=== PATIENT | female | born 1940 | race Caucasian/White ===

== ENCOUNTER → 2016-05-20 | Outpatient (CLI) | payer MEDICARE, OTHER ==
[~2016-05-20] MED LIST: ASPI81TA2 PO; CHOL100013 PO; DENO60DI SQ; FLUT1DIS3 IH; GABA-586 PO; MELO-156 PO; OLME20TA PO; SIMV40TA3 PO; TIOT18CA IH; TIZA4CAP PO
--- NOTE | 2016-05-21 13:02 | SLEEP ---
DATE OF STUDY: 05/20/2016 OBJECTIVE: The patient is a 75-year-old female who had an abnormal home study on 03/28/2016. The present study is for the purposes of CPAP titration. INTERPRETATION: Sleep architecture is characterized by a sleep efficiency of 89% across the 7.7 hours of recording time. Stage volumes are appropriate for age. Sleep onset latency is 1 minute. A total of 27 events are recorded for an apnea-hypopnea index of 3.9 events per hour of sleep. On the prior study, the apnea/hypopnea index was 10 per hour, 13 per hour, supine. The minimum oxygen saturation on this study is 83%. The patient is started on treatment and at a setting of 14 cm, has excellent control of her respiratory events. Periodic limb movements of sleep occur at a rate of 3 per hour, zero per hour associated with arousal. No cardiac arrhythmias were observed. IMPRESSION: Abnormal polysomnogram showing obstructive sleep apnea, successfully treatable on CPAP at 14 cm using a small ResMed full facemask. RECOMMENDATIONS: 1. The patient should be started on this setting of CPAP. 2. She should pursue weight loss and avoid sedatives and alcohol. Thank you for letting us help with the patient's care. RUFINA RICHEY MD DR: KARMA/dixon JOB#: [id number] / [id number] LEAH Bryant MD
== END | disposition home or self-care (01) ==
LOC: SLPLAB 18:45
PROVIDERS: ATTEND Psychiatry & Neurology Neurology with Special Qualifications in Child Neurology
DX: G47.33 Obstructive sleep apnea (adult) (pediatric) (principal)
CPT/HCPCS: 95810

== ENCOUNTER 2017-02-14 12:47 | Inpatient (IN) | payer MEDICARE, OTHER ==
[~2017-02-14] VITALS: Ht 160 cm; Wt 69.0 kg
[~2017-02-14 12:47] MED LIST changes: +ASPI-630 PO; -ASPI81TA2 PO; -MELO-156 PO; +MELO7.5T29 PO; -OLME20TA PO; +OLME20TA19 PO
--- NOTE | 2017-02-14 13:14 | EKG ---
[facility] [address] [place] [address] Test Date: 2017-02-14 Test Time: 13:09:35 Pat Name: HARMAN PATTON Department: Room: Gender: F Senior Accounting Clerk: : 1940 Requested By: ALICIA OREILLY Order Number: [id number] Reading MD: Jovan Gray Measurements Intervals [place] Rate: 130 P: VA: QRS: -31 QRSD: 78 T: 56 QT: 320 QTc: 478 Interpretive Statements SINUS TACHYCARDIA ABNORMAL LEFT AXIS DEVIATION LOW LIMB LEAD VOLTAGE QRS(T) CONTOUR ABNORMALITY CONSISTENT WITH INFERIOR INFARCT Electronically Signed On 03-06-2017 16:57:40 CDT by oJvan Gray
[2017-02-14 13:30] LABS: BASO # 0.1 x10^3/uL (0.0-0.2); BASO % 1 % (0-3); EOS % 1 % (0-3); HEMATOCRIT 34.5 % (36.0-47.0); HEMOGLOBIN 11.7 g/dL (12.0-15.5); LYMPH # 1.4 x10^3/uL (1.0-4.8); LYMPH % 15 % (24-48); MEAN CORPUSCULAR HEMOGLOBIN 30 pg (25-35); MEAN CORPUSCULAR HGB CONC 34 g/dL (31-37); MEAN CORPUSCULAR VOLUME 89 fL (79-100); MONO % 10 % (0-9); NEUT % 73 % (31-73); PLATELET COUNT 183 x10^3/uL (140-400); RED BLOOD COUNT 3.89 x10^6/uL (3.50-5.40); RED CELL DISTRIBUTION WIDTH 12.9 % (11.5-14.5); WHITE BLOOD COUNT 8.9 x10^3/uL (4.0-11.0)
--- NOTE | 2017-02-14 13:43 | PHYS DOC ---
Past Medical History Past Medical History: COPD, Dementia, Hypertension Past Surgical History: Appendectomy, Hysterectomy Alcohol Use: None Drug Use: None Adult General Chief Complaint Chief Complaint: CHEST PAIN and abdominal pain HPI HPI Patient is a 76 year old female who presents with abdominal pain and chest pain. Patient had symptoms for 3 days, it is difficult to understand but she reportedly has upper abdominal pain that is diffuse in her upper quadrants and radiates into her chest but then also has chest tightness and pressure at different times. Both cause diaphoresis, shortness of breath with the chest pain. She's also had nausea without vomiting. She reports a fever up to 100.7 at home. She seen by her primary who thought maybe she had the flu. She denies any dysuria, no loose bowels. She's taken nothing for her symptoms. Dr Moreland is her primary care physician. Review of Systems Review of Systems Constitutional: Denies fever or chills [] Eyes: Denies change in visual acuity, redness, or eye pain [] HENT: Denies nasal congestion or sore throat [] Respiratory: Denies cough or shortness of breath [] Cardiovascular: per history of present illness GI: Per history of present illness : Denies dysuria or hematuria [] Musculoskeletal: Denies back pain or joint pain [] Integument: Denies rash or skin lesions [] Neurologic: Denies headache, focal weakness or sensory changes [] Current Medications Current Medications Current Medications Medications (Trade) Dose Ordered Sig/Jose Start Time Stop Time Status Last Admin Dose Admin Acetaminophen (Tylenol) 1,000 mg 1X ONCE 02/14/17 13:45 02/14/17 13:46 DC 02/14/17 13:53 1,000 MG Aspirin (Aurelio Aspirin) 325 mg 1X ONCE 02/14/17 13:45 02/14/17 13:46 DC 02/14/17 13:54 325 MG Sodium Chloride 1,000 ml @ 1,000 mls/hr 1X ONCE 02/14/17 13:45 02/14/17 14:44 DC 02/14/17 13:54 1,000 MLS/HR Allergies Allergies Allergies Coded Allergies Type Severity Reaction Last Updated Verified No Known Drug Allergies 01/03/16 No Physical Exam Physical Exam Constitutional: Well developed, well nourished, no acute distress, non-toxic appearance. [] HENT: Normocephalic, atraumatic, MM dry Eyes: PERRLA, EOMI, conjunctiva normal, no discharge. [] Neck: Normal range of motion, no tenderness, supple, no stridor. [] Cardiovascular:Heart rate regular rhythm, no murmur [] Lungs & Thorax: Bilateral breath sounds clear to auscultation, no wheeze, faint RLL crackle, good air movement Abdomen: Bowel sounds normal, soft, TTP in RUQ with- murphys, ttp epigastric region and LUQ Skin: Warm, dry, no erythema, no rash. [] Back: No tenderness, no CVA tenderness. [] Extremities: No tenderness, no cyanosis, no clubbing, ROM intact, no edema. [] Neurologic: Alert and oriented X 3, normal motor function, normal sensory function, no focal deficits noted. [] Current Patient Data Vital Signs Vital Signs Date Time Temp Pulse Resp B/P (MAP) Pulse Ox O2 Delivery O2 Flow Rate FiO2 02/14/17 14:30 86 101/59 (73) 94 02/14/17 13:57 18 Room Air 02/14/17 13:00 99.5 99.5 Lab Values Laboratory Tests Test 02/14/17 13:15 02/14/17 13:50 White Blood Count 8.9 x10^3/uL (4.0-11.0) Red Blood Count 3.89 x10^6/uL (3.50-5.40) Hemoglobin 11.7 g/dL (12.0-15.5) L Hematocrit 34.5 % (36.0-47.0) L Mean Corpuscular Volume 89 fL (79-100) Mean Corpuscular Hemoglobin 30 pg (25-35) Mean Corpuscular Hemoglobin Concent 34 g/dL (31-37) Red Cell Distribution Width 12.9 % (11.5-14.5) Platelet Count 183 x10^3/uL (140-400) Neutrophils (%) (Auto) 73 % (31-73) Lymphocytes (%) (Auto) 15 % (24-48) L Monocytes (%) (Auto) 10 % (0-9) H Eosinophils (%) (Auto) 1 % (0-3) Basophils (%) (Auto) 1 % (0-3) Neutrophils # (Auto) 6.5 x10^3uL (1.8-7.7) Lymphocytes # (Auto) 1.4 x10^3/uL (1.0-4.8) Monocytes # (Auto) 0.9 x10^3/uL (0.0-1.1) Eosinophils # (Auto) 0.1 x10^3/uL (0.0-0.7) Basophils # (Auto) 0.1 x10^3/uL (0.0-0.2) Prothrombin Time 13.7 SEC (11.7-14.0) Prothrombin Time INR 1.1 (0.8-1.1) Sodium Level 136 mmol/L (136-145) Potassium Level 3.9 mmol/L (3.5-5.1) Chloride Level 100 mmol/L (98-107) Carbon Dioxide Level 27 mmol/L (21-32) Anion Gap 9 (6-14) Blood Urea Nitrogen 23 mg/dL (7-20) H Creatinine 1.4 mg/dL (0.6-1.0) H Estimated GFR (Cockcroft-Gault) 36.5 BUN/Creatinine Ratio 16 (6-20) Glucose Level 97 mg/dL (70-99) Calcium Level 9.0 mg/dL (8.5-10.1) Magnesium Level 2.0 mg/dL (1.8-2.4) Total Bilirubin 1.2 mg/dL (0.2-1.0) H Aspartate Amino Transferase (AST) 19 U/L (15-37) Alanine Aminotransferase (ALT) 24 U/L (14-59) Alkaline Phosphatase 65 U/L (46-116) Troponin I Quantitative < 0.017 ng/mL (0.000-0.055) XS-Sok-X-Type Natriuretic Peptide 403 pg/mL (0-449) Total Protein 7.8 g/dL (6.4-8.2) Albumin 3.4 g/dL (3.4-5.0) Albumin/Globulin Ratio 0.8 (1.0-1.7) L Amylase Level 33 U/L (25-115) Lipase 168 U/L (73-393) CA 19-9 Antigen 27 U/mL (0-35) Influenza Type A Antigen Negative (NEGATIVE) Influenza Type B Antigen Negative (NEGATIVE) Laboratory Tests 02/14/17 13:15 Laboratory Tests 02/14/17 13:15 EKG EKG 130 bpm, irregular with possible A. fib, normal axis, normal intervals with the exception of QTC of 478, no ST elevation or depression, nonischemic T waves him interpreted by me Of note, patient's heart rate was in the 90s upon my evaluation. Radiology/Procedures Radiology/Procedures []IMPRESSION: 1. No acute cardiopulmonary process. 2. 0.8 cm rounded opacity in the medial right lower lung zone was not seen on prior exams. Finding may relate to end on view of pulmonary vessel. Recommend attention on follow-up exams. Course & Med Decision Making Course & Med Decision Making Pertinent Labs and Imaging studies reviewed. (See chart for details) pt remained sinus on monitor but has afib on ekg. Pt may be experiencing symptoms from paroxysmal afib. Will admit for ongoing monitoring/enzymes. Pt accepted by Dr. Moreland, consult for cardiology placed. Dragon Disclaimer Dragon Disclaimer This electronic medical record was generated, in whole or in part, using a voice recognition dictation system. Departure Departure Impression: Primary Impression: Chest pain Disposition: ADMITTED INPATIENT Admitting Physician: Leah Moreland Condition: STABLE Referrals: LEAH MORELAND MD (PCP) Scripts Pantoprazole Sodium (PANTOPRAZOLE SODIUM) 40 Mg Tablet.dr 40 MG PO DAILYAC for 30 Days, #30 TAB.SR 1 Refill Prov: LEAH MORELAND MD 02/17/17 Metronidazole (FLAGYL) 500 Mg Tablet 250 MG PO Q12HR for 7 Days, #14 TAB 0 Refills Prov: LEAH MORELAND MD 02/17/17 Ciprofloxacin Hcl (CIPRO) 250 Mg Tablet 250 MG PO BID for 7 Days, #14 TAB 0 Refills Prov: LEAH MORELAND MD 02/17/17 ALICIA OREILLY MD Feb 14, 2017 13:43
[2017-02-14 13:44] LABS: INR 1.1 (0.8-1.1); PROTHROMBIN TIME PATIENT 13.7 SEC (11.7-14.0)
[2017-02-14] MEDS ORDERED: IV NORMAL SALINE 1000ML BAG 1,000 ML IV ONE (13:45)
[2017-02-14] MEDS ORDERED: ASPIRIN 325 MG TABLET PO ONE (13:45)
[2017-02-14] MEDS ORDERED: ACETAMINOPHEN 500 MG TABLET PO ONE (13:45)
[2017-02-14 13:46] LABS: CREATININE 1.4 mg/dL (0.6-1.0); GFR 36.5; POTASSIUM 3.9 mmol/L (3.5-5.1)
[2017-02-14 13:51] LABS: ALBUMIN 3.4 g/dL (3.4-5.0); ALBUMIN/GLOBULIN RATIO 0.8 (1.0-1.7); TOTAL BILIRUBIN 1.2 mg/dL (0.2-1.0); TOTAL PROTEIN 7.8 g/dL (6.4-8.2)
--- NOTE | 2017-02-14 14:27 | RAD ---
PORTABLE CHEST 1V Clinical Indication: Chest pain Comparison: Chest radiograph dated 02/13/2017 Findings: Normal lung volume. No focal consolidation. Unchanged left basilar opacities likely related to atelectasis or scarring. 0.8 cm rounded opacity in the medial right lower lung zone was not seen on prior exams. Normal pulmonary vasculature. No pleural effusion or pneumothorax. The cardiomediastinal silhouette and great vessels are stable. No acute osseous abnormality. IMPRESSION: 1. No acute cardiopulmonary process. 2. 0.8 cm rounded opacity in the medial right lower lung zone was not seen on prior exams. Finding may relate to end on view of pulmonary vessel. Recommend attention on follow-up exams.
[2017-02-14 14:28] LABS: OBC FLU VALID
[2017-02-14] MEDS ORDERED: fentaNYL PF VIAL 100 MCG/2 ML VIAL IV PRN (15:30)
[2017-02-14] MEDS ORDERED: ONDANSETRON PF 4 MG/2 ML VIAL. IV PRN (15:30)
--- NOTE | 2017-02-14 15:54 | RAD ---
CT abdomen/pelvis Indication: Intermittent abdominal pain Technique: CT abdomen/pelvis without IV contrast Comparison: None Findings: Limited study due to lack of IV contrast. Heart is normal in size. Noncontrast appearance of the liver, spleen, adrenal glands and kidneys is within normal limits. Simple cyst in the left kidney. Gallbladder is distended without radiopaque gallstones. No pericholecystic fluid. Inflammatory changes are seen at the pancreaticoduodenal groove. 1.8 x 2.1 cm duodenal diverticulum is seen. No peripancreatic fluid collections. The pancreatic body and tail demonstrate no inflammatory changes. No free intraperitoneal fluid. No retroperitoneal or pelvic adenopathy. Scattered atherosclerotic disease of the abdominal aorta and proximal bilateral common iliac arteries. No bowel obstruction. Sigmoid and descending colon diverticulosis. Uterus is surgically absent. Bilateral ovaries are visualized. Bladder is within normal limits. No suspicious bony lesions. Degenerative disc disease in the lower lumbar spine. Impression: Limited study due to lack of IV contrast. 1. 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 There is a duodenal diverticulum in the pancreaticoduodenal groove . Alternate diagnosis include duodenal diverticulitis. Underlying pancreatic or ampullary mass not ruled out. 2. Sigmoid and descending colon diverticulosis without diverticulitis. PQRS Compliance Statement: One or more of the following individualized dose reduction techniques were utilized for this examination: 1. Automated exposure control 2. Adjustment of the mA and/or kV according to patient size 3. Use of iterative reconstruction technique
[2017-02-14] MEDS ORDERED: tiZANidine 4 MG TABLET. PO PRN (17:00)
--- NOTE | 2017-02-14 17:04 | PDOC1 ---
History and Physical Date of Admission Date of Admission 02/14/17 Identification/Chief Complaint Chief Complaint chest and abdominal pain Problems: Source Source: Chart review, Patient History of Present Illness History of Present Illness Patient is a 76 year old female who presents with abdominal pain and chest pain. Patient had symptoms for 3 days, it is difficult to understand but she reportedly has upper abdominal pain that is diffuse in her upper quadrants and radiates into her chest but then also has chest tightness and pressure at different times. Both cause diaphoresis, shortness of breath with the chest pain. She's also had nausea without vomiting. She reports a fever up to 100.7 at home. She seen by nurse HERNAN yesterday and was diagnosed with flu like symptoms as she had nausea, abd pain and mild SOB, was getting worse today and came to ER, had A Fib on EKG but in sinus now. last colonoscopy 2011 had polyps Past Medical History Cardiovascular: HTN Pulmonary: COPD CENTRAL NERVOUS SYSTEM: Dementia, Other (right carotid anuerysm) GI: GERD, Other (diverticulosis, colon polyp) Heme/Onc: No pertinent hx Hepatobiliary: No pertinent hx Psych: Other (forgetfulness) Rheumatologic: Other (DJD) Infectious disease: No pertinent hx ENT: Allergic Rhinitis Renal/: Chronic renal insuff Endocrine: Osteoporosis Dermatology: No pertinent hx Past Surgical History Past Surgical History: Appendectomy, Hysterectomy Family History Family History: Hypertension Social History Smoke: Quit (quit 27 years ago but has 40 year Hx of smoking) ALCOHOL: rare Drugs: None Current Medications Current Medications Current Medications Medications (Trade) Dose Ordered Sig/Jose Start Time Stop Time Status Last Admin Dose Admin Acetaminophen (Tylenol) 1,000 mg 1X ONCE 02/14/17 13:45 02/14/17 13:46 DC 02/14/17 13:53 1,000 MG Aspirin (Aurelio Aspirin) 325 mg 1X ONCE 02/14/17 13:45 02/14/17 13:46 DC 02/14/17 13:54 325 MG Aspirin (Children'S Aspirin) 81 mg DAILY 02/15/17 09:00 UNV Fentanyl Citrate (Fentanyl 2ml Vial) 50 mcg PRN Q2HR PRN 02/14/17 15:30 02/15/17 15:29 Non-Formulary Medication 4 mg TID PRN 02/14/17 17:00 UNV Ondansetron HCl (Zofran) 4 mg PRN Q8HRS PRN 02/14/17 15:30 02/15/17 15:29 Simvastatin (Zocor) 40 mg HS 02/14/17 21:00 UNV Sodium Chloride 1,000 ml @ 1,000 mls/hr 1X ONCE 02/14/17 13:45 02/14/17 14:44 DC 02/14/17 13:54 1,000 MLS/HR Allergies Allergies Allergies Coded Allergies Type Severity Reaction Last Updated Verified No Known Drug Allergies 01/03/16 No ROS Review of System CONSTITUTIONAL: + low grade fever No chills EYES: No recent changes SKIN: No rash or itching CARDIOVASCULAR: + chest and abdominal pain,No syncope, palpitations, or edema RESPIRATORY: + SOB , only dry cough GASTROINTESTINAL: +nausea, No vomiting or change in bowel habits NEUROLOGICAL: No headaches + general weakness ENDOCRINE: No cold or heat intolerance GENITOURINARY: No urgency or frequency of urination MUSCULOSKELETAL: + arthralgia and myalgia LYMPHATICS: No enlarged lymph nodes Physical Exam Physical Exam GEN.: No apparent distress. Alert and oriented. HEENT: Head is normocephalic, atraumatic NECK: Supple. LUNGS: Clear to auscultation. HEART: RRR, S1, S2 present. Peripheral pulses intact ABDOMEN: + tenderness epigastric and Left upper quadrant, no rebound or guarding +BS EXTREMITIES: Without any cyanosis. NEUROLOGIC: Normal speech, normal tone PSYCHIATRIC: Normal affect, normal mood. SKIN: No ulcerations Vitals Vitals Vital Signs Date Time Temp Pulse Resp B/P (MAP) Pulse Ox O2 Delivery O2 Flow Rate FiO2 02/14/17 16:00 80 02/14/17 14:30 101/59 (73) 94 02/14/17 13:57 18 Room Air 02/14/17 13:00 99.5 99.5 Labs Labs Laboratory Tests Test 02/14/17 13:15 02/14/17 13:50 White Blood Count 8.9 x10^3/uL (4.0-11.0) Red Blood Count 3.89 x10^6/uL (3.50-5.40) Hemoglobin 11.7 g/dL (12.0-15.5) Hematocrit 34.5 % (36.0-47.0) Mean Corpuscular Volume 89 fL (79-100) Mean Corpuscular Hemoglobin 30 pg (25-35) Mean Corpuscular Hemoglobin Concent 34 g/dL (31-37) Red Cell Distribution Width 12.9 % (11.5-14.5) Platelet Count 183 x10^3/uL (140-400) Neutrophils (%) (Auto) 73 % (31-73) Lymphocytes (%) (Auto) 15 % (24-48) Monocytes (%) (Auto) 10 % (0-9) Eosinophils (%) (Auto) 1 % (0-3) Basophils (%) (Auto) 1 % (0-3) Neutrophils # (Auto) 6.5 x10^3uL (1.8-7.7) Lymphocytes # (Auto) 1.4 x10^3/uL (1.0-4.8) Monocytes # (Auto) 0.9 x10^3/uL (0.0-1.1) Eosinophils # (Auto) 0.1 x10^3/uL (0.0-0.7) Basophils # (Auto) 0.1 x10^3/uL (0.0-0.2) Prothrombin Time 13.7 SEC (11.7-14.0) Prothromb Time International Ratio 1.1 (0.8-1.1) Sodium Level 136 mmol/L (136-145) Potassium Level 3.9 mmol/L (3.5-5.1) Chloride Level 100 mmol/L (98-107) Carbon Dioxide Level 27 mmol/L (21-32) Anion Gap 9 (6-14) Blood Urea Nitrogen 23 mg/dL (7-20) Creatinine 1.4 mg/dL (0.6-1.0) Estimated GFR (Cockcroft-Gault) 36.5 BUN/Creatinine Ratio 16 (6-20) Glucose Level 97 mg/dL (70-99) Calcium Level 9.0 mg/dL (8.5-10.1) Magnesium Level 2.0 mg/dL (1.8-2.4) Total Bilirubin 1.2 mg/dL (0.2-1.0) Aspartate Amino Transf (AST/SGOT) 19 U/L (15-37) Alanine Aminotransferase (ALT/SGPT) 24 U/L (14-59) Alkaline Phosphatase 65 U/L (46-116) Troponin I Quantitative < 0.017 ng/mL (0.000-0.055) XC-Yzt-E-Type Natriuretic Peptide 403 pg/mL (0-449) Total Protein 7.8 g/dL (6.4-8.2) Albumin 3.4 g/dL (3.4-5.0) Albumin/Globulin Ratio 0.8 (1.0-1.7) Lipase 168 U/L (73-393) Influenza Type A Antigen Negative (NEGATIVE) Influenza Type B Antigen Negative (NEGATIVE) Laboratory Tests Test 02/14/17 13:15 02/14/17 13:50 White Blood Count 8.9 x10^3/uL (4.0-11.0) Red Blood Count 3.89 x10^6/uL (3.50-5.40) Hemoglobin 11.7 g/dL (12.0-15.5) Hematocrit 34.5 % (36.0-47.0) Mean Corpuscular Volume 89 fL (79-100) Mean Corpuscular Hemoglobin 30 pg (25-35) Mean Corpuscular Hemoglobin Concent 34 g/dL (31-37) Red Cell Distribution Width 12.9 % (11.5-14.5) Platelet Count 183 x10^3/uL (140-400) Neutrophils (%) (Auto) 73 % (31-73) Lymphocytes (%) (Auto) 15 % (24-48) Monocytes (%) (Auto) 10 % (0-9) Eosinophils (%) (Auto) 1 % (0-3) Basophils (%) (Auto) 1 % (0-3) Neutrophils # (Auto) 6.5 x10^3uL (1.8-7.7) Lymphocytes # (Auto) 1.4 x10^3/uL (1.0-4.8) Monocytes # (Auto) 0.9 x10^3/uL (0.0-1.1) Eosinophils # (Auto) 0.1 x10^3/uL (0.0-0.7) Basophils # (Auto) 0.1 x10^3/uL (0.0-0.2) Prothrombin Time 13.7 SEC (11.7-14.0) Prothromb Time International Ratio 1.1 (0.8-1.1) Sodium Level 136 mmol/L (136-145) Potassium Level 3.9 mmol/L (3.5-5.1) Chloride Level 100 mmol/L (98-107) Carbon Dioxide Level 27 mmol/L (21-32) Anion Gap 9 (6-14) Blood Urea Nitrogen 23 mg/dL (7-20) Creatinine 1.4 mg/dL (0.6-1.0) Estimated GFR (Cockcroft-Gault) 36.5 BUN/Creatinine Ratio 16 (6-20) Glucose Level 97 mg/dL (70-99) Calcium Level 9.0 mg/dL (8.5-10.1) Magnesium Level 2.0 mg/dL (1.8-2.4) Total Bilirubin 1.2 mg/dL (0.2-1.0) Aspartate Amino Transf (AST/SGOT) 19 U/L (15-37) Alanine Aminotransferase (ALT/SGPT) 24 U/L (14-59) Alkaline Phosphatase 65 U/L (46-116) Troponin I Quantitative < 0.017 ng/mL (0.000-0.055) WG-Xvj-Y-Type Natriuretic Peptide 403 pg/mL (0-449) Total Protein 7.8 g/dL (6.4-8.2) Albumin 3.4 g/dL (3.4-5.0) Albumin/Globulin Ratio 0.8 (1.0-1.7) Lipase 168 U/L (73-393) Influenza Type A Antigen Negative (NEGATIVE) Influenza Type B Antigen Negative (NEGATIVE) VTE Prophylaxis Ordered VTE Prophylaxis Devices: Yes VTE Pharmacological Prophylaxi: Yes Assessment/Plan Assessment/Plan 1- chest pain and short episode of paroxysmal A Fib , cardiology consult and serial cardiac enzymes and EKG's 2-Gastritis started PPI hold NSAID 3-abnormal pancreas and CT abd check Amylase/lipase/CA19-9 consult GI, consider MRCP or US will leave up to GI, no hx EGD that I am aware of 4-diverticulosis and hx colon polyp colono 2011 5-HTN Bp low hold medication 6- acute on chronic renal insufficiency her baseline creatinine is 1.1 slow hydration 7- hx right internal carotid aneurysm followed by Dr. De Souza 8-mild Dementia 9-DJD 10 - mild HLD 11-lung nodule incidental finding check CT chest 12- osteoporosis Dr. Aldana is covering this week end discussed with pt and daughter LEAH MORELAND MD Feb 14, 2017 17:04
[2017-02-14 17:12] VITALS: BP 114/72
[2017-02-14 18:06] LABS: BILIRUBIN,URINE NEGATIVE (NEG); GLUCOSE,URINE NEGATIVE (NEG); NITRITE,URINE NEGATIVE (NEG); PH,URINE 5.5; PROTEIN,URINE NEGATIVE (NEG-TRACE)
[2017-02-14] MEDS ORDERED: PNEUMOCOCCAL VAX SCREEN BY RX. MC ONE (18:15)
[2017-02-14 18:18] LABS: BACTERIA,URINE FEW /HPF (0-FEW); RBC,URINE 0 /HPF (0-2); SQUAMOUS EPITHELIAL CELL,UR MANY /LPF; WBC,URINE 20-40 /HPF (0-4)
[2017-02-14] MEDS: POTASSIUM CL 20MEQ D5-0.45NACL 1,000 ML IV SCH (19:05)
[2017-02-14 19:33] VITALS: BP 99/49
[2017-02-14] MEDS: IPRATRPIUM/ALBUTEROL 0.5/2.5MG 3 ML NEBU. NEB SCH (20:02)
[2017-02-14] MEDS: BUDESONIDE 0.5 MG/2 ML NEBU. NEB SCH (20:02)
[2017-02-14] MEDS: SIMVASTATIN 40 MG TABLET. PO SCH (20:29)
[2017-02-14] MEDS: ENOXAPARIN 30 MG/0.3 ML SYRINGE. SQ SCH (20:29)
[2017-02-14] MEDS ORDERED: NON FORMULARY ITEM (Fluticasone/Salmeterol (Advair 250-50 Diskus) 1 INH) IH SCH (21:00)
[2017-02-14 23:52] VITALS: BP 100/56
[2017-02-15 03:00] VITALS: BP 101/52
[2017-02-15 06:29] LABS: HEMATOCRIT 30.3 % (36.0-47.0); HEMOGLOBIN 10.4 g/dL (12.0-15.5); RED BLOOD COUNT 3.41 x10^6/uL (3.50-5.40); WHITE BLOOD COUNT 7.2 x10^3/uL (4.0-11.0)
[2017-02-15 07:00] VITALS: BP 116/61
[2017-02-15] MEDS: BUDESONIDE 0.5 MG/2 ML NEBU. NEB SCH ×2 (07:17→19:25)
[2017-02-15] MEDS: IPRATRPIUM/ALBUTEROL 0.5/2.5MG 3 ML NEBU. NEB SCH ×4 (07:17→19:25)
[2017-02-15 07:22] LABS: ALBUMIN 2.9 g/dL (3.4-5.0); ALBUMIN/GLOBULIN RATIO 0.8 (1.0-1.7); CALCIUM 8.7 mg/dL (8.5-10.1); CREATININE 1.4 mg/dL (0.6-1.0); GFR 36.5; POTASSIUM 3.3 mmol/L (3.5-5.1); TOTAL BILIRUBIN 0.7 mg/dL (0.2-1.0); TOTAL PROTEIN 6.6 g/dL (6.4-8.2)
[2017-02-15 07:23] LABS: CHOLESTEROL/HDL RATIO 3.4
--- NOTE | 2017-02-15 07:43 | RAD ---
CT of the chest without contrast, 02/14/2017: History: Abnormal chest radiograph Noncontrast scans were obtained with multiplanar reconstructions produced. There are a few tiny scattered lucencies in the lungs compatible with mild emphysematous change. Several scattered linear parenchymal opacities are compatible with scars. No pulmonary mass or significant consolidation is seen. The small density projected over the right lower chest on the recent chest radiograph appears to have been due to an overlying costochondral ossification rather than a pulmonary nodule. There is no evidence of pleural fluid. There is mild calcific plaquing of the thoracic aorta and its branches without evidence of aneurysm. Several scattered coronary artery calcifications are noted. The heart is not enlarged. Small mediastinal lymph nodes are present without evidence of pathologic enlargement. There are moderate scattered degenerative changes in the spine. IMPRESSION: 1. Mild emphysema and parenchymal scarring. 2. Calcific plaquing of the aorta and its branches including the coronary arteries. 3. No acute chest abnormality is detected. PQRS Compliance Statement: One or more of the following individualized dose reduction techniques were utilized for this examination: 1. Automated exposure control 2. Adjustment of the mA and/or kV according to patient size 3. Use of iterative reconstruction technique
[2017-02-15] MEDS: POTASSIUM CL 20MEQ D5-0.45NACL 1,000 ML IV SCH ×2 (07:56→21:51)
[2017-02-15] MEDS: PANTOPRAZOLE 40 MG TABLET.DR. PO SCH (07:57)
[2017-02-15] MEDS: ASPIRIN CHEWABLE 81 MG TABLET. PO SCH (07:57)
[2017-02-15] MEDS ORDERED: NON FORMULARY ITEM (Tiotropium Bromide (Spiriva) 1 CAP) IH SCH (09:00)
--- NOTE | 2017-02-15 10:44 | PDOC ---
GENERAL General: vss and afebrile. mildly hypokalemic. pancreatoduodenal process on ct with normal amylase and lipase. diffuse upper quadrant tenderness on exam and patient states radiates to her back. ua on admission with possible uti also. chest clear and heart regular. await GI opinion and continue pain control. Problems: VITAL SIGNS Vital Signs: Vital Signs Date Time Temp Pulse Resp B/P (MAP) Pulse Ox O2 Delivery O2 Flow Rate FiO2 02/15/17 08:00 Room Air 02/15/17 07:19 92 02/15/17 07:00 98.6 88 18 116/61 (79) 98.6 ALLERGIES Allergies: Allergies Coded Allergies Type Severity Reaction Last Updated Verified No Known Drug Allergies 01/03/16 No MEDS Medications: Current Medications Medications (Trade) Dose Ordered Sig/Jose Start Time Stop Time Status Last Admin Dose Admin Acetaminophen (Tylenol) 1,000 mg 1X ONCE 02/14/17 13:45 02/14/17 13:46 DC 02/14/17 13:53 1,000 MG Albuterol/ Ipratropium (Duoneb) 3 ml RTQID 02/14/17 20:00 02/15/17 07:17 3 ML Aspirin (Aurelio Aspirin) 325 mg 1X ONCE 02/14/17 13:45 02/14/17 13:46 DC 02/14/17 13:54 325 MG Aspirin (Children'S Aspirin) 81 mg DAILY 02/15/17 09:00 02/15/17 07:57 81 MG Budesonide (Pulmicort) 0.5 mg RTBID 02/14/17 20:00 02/15/17 07:17 0.5 MG Enoxaparin Sodium (Lovenox 30mg Syringe) 30 mg Q24H 02/14/17 21:00 02/14/17 20:29 30 MG Fentanyl Citrate (Fentanyl 2ml Vial) 50 mcg PRN Q2HR PRN 02/14/17 15:30 02/15/17 15:29 Non-Formulary Medication 1 cap DAILY 02/15/17 09:00 UNV Ondansetron HCl (Zofran) 4 mg PRN Q8HRS PRN 02/14/17 15:30 02/15/17 15:29 Pantoprazole Sodium (Protonix) 40 mg DAILYAC 02/15/17 07:30 02/15/17 07:57 40 MG Pneumococcal Polyvalent Vaccine (Do NOT chart on this placeholder) 1 each 1X ONCE 02/14/17 18:15 02/14/17 18:16 UNV Potassium Chloride/Dextrose/ Sod Cl 1,000 ml @ 75 mls/hr [id number] 02/14/17 17:45 02/15/17 07:56 75 MLS/HR Simvastatin (Zocor) 40 mg HS 02/14/17 21:00 02/14/17 20:29 40 MG Sodium Chloride 1,000 ml @ 1,000 mls/hr 1X ONCE 02/14/17 13:45 02/14/17 14:44 DC 02/14/17 13:54 1,000 MLS/HR Tizanidine HCl (Zanaflex) 4 mg PRN Q8HRS PRN 02/14/17 17:00 LAB Lab: Laboratory Tests Test 02/14/17 13:15 02/14/17 13:50 02/14/17 17:00 02/14/17 21:00 White Blood Count 8.9 x10^3/uL (4.0-11.0) Red Blood Count 3.89 x10^6/uL (3.50-5.40) Hemoglobin 11.7 g/dL (12.0-15.5) Hematocrit 34.5 % (36.0-47.0) Mean Corpuscular Volume 89 fL (79-100) Mean Corpuscular Hemoglobin 30 pg (25-35) Mean Corpuscular Hemoglobin Concent 34 g/dL (31-37) Red Cell Distribution Width 12.9 % (11.5-14.5) Platelet Count 183 x10^3/uL (140-400) Neutrophils (%) (Auto) 73 % (31-73) Lymphocytes (%) (Auto) 15 % (24-48) Monocytes (%) (Auto) 10 % (0-9) Eosinophils (%) (Auto) 1 % (0-3) Basophils (%) (Auto) 1 % (0-3) Neutrophils # (Auto) 6.5 x10^3uL (1.8-7.7) Lymphocytes # (Auto) 1.4 x10^3/uL (1.0-4.8) Monocytes # (Auto) 0.9 x10^3/uL (0.0-1.1) Eosinophils # (Auto) 0.1 x10^3/uL (0.0-0.7) Basophils # (Auto) 0.1 x10^3/uL (0.0-0.2) Prothrombin Time 13.7 SEC (11.7-14.0) Prothromb Time International Ratio 1.1 (0.8-1.1) Sodium Level 136 mmol/L (136-145) Potassium Level 3.9 mmol/L (3.5-5.1) Chloride Level 100 mmol/L (98-107) Carbon Dioxide Level 27 mmol/L (21-32) Anion Gap 9 (6-14) Blood Urea Nitrogen 23 mg/dL (7-20) Creatinine 1.4 mg/dL (0.6-1.0) Estimated GFR (Cockcroft-Gault) 36.5 BUN/Creatinine Ratio 16 (6-20) Glucose Level 97 mg/dL (70-99) Calcium Level 9.0 mg/dL (8.5-10.1) Magnesium Level 2.0 mg/dL (1.8-2.4) Total Bilirubin 1.2 mg/dL (0.2-1.0) Aspartate Amino Transf (AST/SGOT) 19 U/L (15-37) Alanine Aminotransferase (ALT/SGPT) 24 U/L (14-59) Alkaline Phosphatase 65 U/L (46-116) Troponin I Quantitative < 0.017 ng/mL (0.000-0.055) < 0.017 ng/mL (0.000-0.055) ZL-Pto-V-Type Natriuretic Peptide 403 pg/mL (0-449) Total Protein 7.8 g/dL (6.4-8.2) Albumin 3.4 g/dL (3.4-5.0) Albumin/Globulin Ratio 0.8 (1.0-1.7) Amylase Level 33 U/L (25-115) Lipase 168 U/L (73-393) Influenza Type A Antigen Negative (NEGATIVE) Influenza Type B Antigen Negative (NEGATIVE) Urine Collection Type Unknown Urine Color Dk yellow Urine Clarity Clear Urine pH 5.5 Urine Specific [place] 1.020 Urine Protein Negative mg/dL (NEG-TRACE) Urine Glucose (UA) Negative mg/dL (NEG) Urine Ketones (Stick) Trace mg/dL (NEG) Urine Blood Negative (NEG) Urine Nitrite Negative (NEG) Urine Bilirubin Negative (NEG) Urine Urobilinogen Dipstick 1.0 mg/dL (0.2 mg/dL) Urine Leukocyte Esterase Large (NEG) Urine RBC 0 /HPF (0-2) Urine WBC 20-40 /HPF (0-4) Urine Squamous Epithelial Cells Many /LPF Urine Renal Epithelial Cells Few /LPF Urine Bacteria Few /HPF (0-FEW) Urine Hyaline Casts Moderate /HPF Urine Mucus Marked /LPF Test 02/15/17 04:00 02/15/17 04:30 White Blood Count 7.2 x10^3/uL (4.0-11.0) Red Blood Count 3.41 x10^6/uL (3.50-5.40) Hemoglobin 10.4 g/dL (12.0-15.5) Hematocrit 30.3 % (36.0-47.0) Mean Corpuscular Volume 89 fL (79-100) Mean Corpuscular Hemoglobin 31 pg (25-35) Mean Corpuscular Hemoglobin Concent 34 g/dL (31-37) Red Cell Distribution Width 13.0 % (11.5-14.5) Platelet Count 163 x10^3/uL (140-400) Erythrocyte Sedimentation Rate 43 (0-25) Sodium Level 141 mmol/L (136-145) Potassium Level 3.3 mmol/L (3.5-5.1) Chloride Level 103 mmol/L (98-107) Carbon Dioxide Level 27 mmol/L (21-32) Anion Gap 11 (6-14) Blood Urea Nitrogen 24 mg/dL (7-20) Creatinine 1.4 mg/dL (0.6-1.0) Estimated GFR (Cockcroft-Gault) 36.5 BUN/Creatinine Ratio 17 (6-20) Glucose Level 111 mg/dL (70-99) Calcium Level 8.7 mg/dL (8.5-10.1) Total Bilirubin 0.7 mg/dL (0.2-1.0) Aspartate Amino Transf (AST/SGOT) 20 U/L (15-37) Alanine Aminotransferase (ALT/SGPT) 17 U/L (14-59) Alkaline Phosphatase 52 U/L (46-116) Troponin I Quantitative < 0.017 ng/mL (0.000-0.055) Total Protein 6.6 g/dL (6.4-8.2) Albumin 2.9 g/dL (3.4-5.0) Albumin/Globulin Ratio 0.8 (1.0-1.7) Triglycerides Level 82 mg/dL (0-150) Cholesterol Level 130 mg/dL (0-200) LDL Cholesterol, Calculated 76 mg/dL (0-100) VLDL Cholesterol, Calculated 16 mg/dL (0-40) Non-HDL Cholesterol Calculated 92 mg/dL (0-129) HDL Cholesterol 38 mg/dL (40-60) Cholesterol/HDL Ratio 3.4 Amylase Level 32 U/L (25-115) Lipase 213 U/L (73-393) CANDIE GAN MD Feb 15, 2017 10:44
[2017-02-15 11:00] VITALS: BP 89/51
[2017-02-15 15:00] VITALS: BP 101/56
--- NOTE | 2017-02-15 15:03 | PDOC2 ---
CONSULT Date of Consult Date of Consult DATE: 02/15/17 TIME: 14:57 Reason for Consult Reason for Consult: Chest pain Referring Physician Referring Physician: Dr. Coleman Identification/Chief Complaint Chief Complaint Abdominal pain Problems: History of Present Illness Reason for Visit: This patient is a very pleasant 76-year-old lady that states that she's never had any problems with her heart. She comes in with a pancreaticoduodenal duodenitis and abdominal pain. She then developed some chest pains and I was called on consult. I saw the patient yesterday but was unable to get the consult in the computer due to the computer not working and I even talked to [employer] and tried to talk to IT but they never called. There was a mention of this patient being in atrial fibrillation but all of the rhythm strips that I have seen since she was admitted she has been in sinus rhythm. All of the sets of enzymes have been negative. And the patient's pain seems to be mostly across the epigastrium. Past Medical History Cardiovascular: HTN Pulmonary: COPD CENTRAL NERVOUS SYSTEM: Dementia, Other (right carotid anuerysm) GI: GERD, Other (diverticulosis, colon polyp) Heme/Onc: No pertinent hx Hepatobiliary: No pertinent hx Psych: Other (forgetfulness) Rheumatologic: Other (DJD) Infectious disease: No pertinent hx ENT: Allergic Rhinitis Renal/: Chronic renal insuff Endocrine: Osteoporosis Dermatology: No pertinent hx Past Surgical History Past Surgical History: Appendectomy, Hysterectomy Family History Family History: Hypertension Social History Quit (quit 27 years ago but has 40 year Hx of smoking) ALCOHOL: rare Drugs: None Current Medications Current Medications Current Medications Sodium Chloride 1,000 ml @ 1,000 mls/hr 1X ONCE IV Last administered on 13:54; Start 02/14/17 at 13:45; Stop 02/14/17 at 14:44; Status DC Acetaminophen (Tylenol) 1,000 mg 1X ONCE PO Last administered on 02/14/17 13: 53; Start 02/14/17 at 13:45; Stop 02/14/17 at 13:46; Status DC Aspirin (Aurelio Aspirin) 325 mg 1X ONCE PO Last administered on 02/14/17 13:54 ; Start 02/14/17 at 13:45; Stop 02/14/17 at 13:46; Status DC Ondansetron HCl (Zofran) 4 mg PRN Q8HRS PRN IV NAUSEA/VOMITING; Start 02/14/17 at 15:30; Stop 02/15/17 at 15:29 Fentanyl Citrate (Fentanyl 2ml Vial) 50 mcg PRN Q2HR PRN IV PAIN; Start at 15:30; Stop 02/15/17 at 15:29 Aspirin (Children'S Aspirin) 81 mg DAILY PO Last administered on 02/15/17 07: 57; Start 02/15/17 at 09:00 Simvastatin (Zocor) 40 mg HS PO Last administered on 02/14/17 20:29; Start at 21:00 Non-Formulary Medication 1 inh BID IH ; Start 02/14/17 at 21:00; Status UNV Non-Formulary Medication 1 cap DAILY IH ; Start 02/15/17 at 09:00; Status UNV Tizanidine HCl (Zanaflex) 4 mg PRN Q8HRS PRN PO MUSCLE SPASMS; Start 02/14/17 at 17:00 Enoxaparin Sodium (Lovenox 30mg Syringe) 30 mg Q24H SQ Last administered on 20:29; Start 02/14/17 at 21:00 Pantoprazole Sodium (Protonix) 40 mg DAILYAC PO Last administered on 02/15/17 07:57; Start 02/15/17 at 07:30 Budesonide (Pulmicort) 0.5 mg RTBID NEB Last administered on 02/15/17 07:17; Start 02/14/17 at 20:00 Albuterol/ Ipratropium (Duoneb) 3 ml RTQID NEB Last administered on 02/15/17 14:55; Start 02/14/17 at 20:00 Potassium Chloride/Dextrose/ Sod Cl 1,000 ml @ 75 mls/hr [id number] IV Last administered on 02/15/17 07:56; Start 02/14/17 at 17:45 Pneumococcal Polyvalent Vaccine (Do NOT chart on this placeholder) 1 each 1X ONCE MC ; Start 02/14/17 at 18:15; Stop 02/14/17 at 18:16; Status UNV Active Scripts Active Reported Tizanidine Hcl 4 Mg Capsule 4 Mg PO TID PRN Meloxicam 7.5 Mg Tablet 7.5 Mg PO DAILY Gabapentin 300 Mg Capsule 300 Mg PO TID Prolia (Denosumab) 60 Mg/1 Ml Disp.syrin 60 Mg SQ Aspirin 81 Mg Tab.chew 81 Mg PO Vitamin D (Cholecalciferol (Vitamin D3)) 1,000 Unit Capsule 1,000 Unit PO Advair 250-50 Diskus (Fluticasone/Salmeterol) 1 Each Disk.w.dev 1 Inh IH BID Simvastatin 40 Mg Tablet 40 Mg PO HS Spiriva (Tiotropium Gile) 18 Mcg Cap.w.dev 1 Cap IH DAILY Benicar (Olmesartan Medoxomil) 20 Mg Tablet 20 Mg PO DAILY Allergies Allergies: Coded Allergies: No Known Drug Allergies (Unverified , 01/03/16) Physical Exam General: Alert, Oriented X3, Cooperative HEENT: PERRLA Lungs: Clear to auscultation Heart: Regular rate, Normal S1, Normal S2, Other (no rub was heard) Abdomen: Other (soft, bowel sounds present, upper abdominal tenderness) Extremities: No edema Vitals VITALS Vital Signs Date Time Temp Pulse Resp B/P (MAP) Pulse Ox O2 Delivery O2 Flow Rate FiO2 02/15/17 14:56 94 Room Air 02/15/17 11:00 98.3 87 18 89/51 (64) 98.3 Labs Labs Laboratory Tests Test 02/14/17 13:15 02/14/17 13:50 02/14/17 17:00 02/14/17 21:00 White Blood Count 8.9 x10^3/uL (4.0-11.0) Red Blood Count 3.89 x10^6/uL (3.50-5.40) Hemoglobin 11.7 g/dL (12.0-15.5) Hematocrit 34.5 % (36.0-47.0) Mean Corpuscular Volume 89 fL (79-100) Mean Corpuscular Hemoglobin 30 pg (25-35) Mean Corpuscular Hemoglobin Concent 34 g/dL (31-37) Red Cell Distribution Width 12.9 % (11.5-14.5) Platelet Count 183 x10^3/uL (140-400) Neutrophils (%) (Auto) 73 % (31-73) Lymphocytes (%) (Auto) 15 % (24-48) Monocytes (%) (Auto) 10 % (0-9) Eosinophils (%) (Auto) 1 % (0-3) Basophils (%) (Auto) 1 % (0-3) Neutrophils # (Auto) 6.5 x10^3uL (1.8-7.7) Lymphocytes # (Auto) 1.4 x10^3/uL (1.0-4.8) Monocytes # (Auto) 0.9 x10^3/uL (0.0-1.1) Eosinophils # (Auto) 0.1 x10^3/uL (0.0-0.7) Basophils # (Auto) 0.1 x10^3/uL (0.0-0.2) Prothrombin Time 13.7 SEC (11.7-14.0) Prothromb Time International Ratio 1.1 (0.8-1.1) Sodium Level 136 mmol/L (136-145) Potassium Level 3.9 mmol/L (3.5-5.1) Chloride Level 100 mmol/L (98-107) Carbon Dioxide Level 27 mmol/L (21-32) Anion Gap 9 (6-14) Blood Urea Nitrogen 23 mg/dL (7-20) Creatinine 1.4 mg/dL (0.6-1.0) Estimated GFR (Cockcroft-Gault) 36.5 BUN/Creatinine Ratio 16 (6-20) Glucose Level 97 mg/dL (70-99) Calcium Level 9.0 mg/dL (8.5-10.1) Magnesium Level 2.0 mg/dL (1.8-2.4) Total Bilirubin 1.2 mg/dL (0.2-1.0) Aspartate Amino Transf (AST/SGOT) 19 U/L (15-37) Alanine Aminotransferase (ALT/SGPT) 24 U/L (14-59) Alkaline Phosphatase 65 U/L (46-116) Troponin I Quantitative < 0.017 ng/mL (0.000-0.055) < 0.017 ng/mL (0.000-0.055) JR-Ryi-M-Type Natriuretic Peptide 403 pg/mL (0-449) Total Protein 7.8 g/dL (6.4-8.2) Albumin 3.4 g/dL (3.4-5.0) Albumin/Globulin Ratio 0.8 (1.0-1.7) Amylase Level 33 U/L (25-115) Lipase 168 U/L (73-393) Influenza Type A Antigen Negative (NEGATIVE) Influenza Type B Antigen Negative (NEGATIVE) Urine Collection Type Unknown Urine Color Dk yellow Urine Clarity Clear Urine pH 5.5 Urine Specific [place] 1.020 Urine Protein Negative mg/dL (NEG-TRACE) Urine Glucose (UA) Negative mg/dL (NEG) Urine Ketones (Stick) Trace mg/dL (NEG) Urine Blood Negative (NEG) Urine Nitrite Negative (NEG) Urine Bilirubin Negative (NEG) Urine Urobilinogen Dipstick 1.0 mg/dL (0.2 mg/dL) Urine Leukocyte Esterase Large (NEG) Urine RBC 0 /HPF (0-2) Urine WBC 20-40 /HPF (0-4) Urine Squamous Epithelial Cells Many /LPF Urine Renal Epithelial Cells Few /LPF Urine Bacteria Few /HPF (0-FEW) Urine Hyaline Casts Moderate /HPF Urine Mucus Marked /LPF Test 02/15/17 04:00 02/15/17 04:30 White Blood Count 7.2 x10^3/uL (4.0-11.0) Red Blood Count 3.41 x10^6/uL (3.50-5.40) Hemoglobin 10.4 g/dL (12.0-15.5) Hematocrit 30.3 % (36.0-47.0) Mean Corpuscular Volume 89 fL (79-100) Mean Corpuscular Hemoglobin 31 pg (25-35) Mean Corpuscular Hemoglobin Concent 34 g/dL (31-37) Red Cell Distribution Width 13.0 % (11.5-14.5) Platelet Count 163 x10^3/uL (140-400) Erythrocyte Sedimentation Rate 43 (0-25) Sodium Level 141 mmol/L (136-145) Potassium Level 3.3 mmol/L (3.5-5.1) Chloride Level 103 mmol/L (98-107) Carbon Dioxide Level 27 mmol/L (21-32) Anion Gap 11 (6-14) Blood Urea Nitrogen 24 mg/dL (7-20) Creatinine 1.4 mg/dL (0.6-1.0) Estimated GFR (Cockcroft-Gault) 36.5 BUN/Creatinine Ratio 17 (6-20) Glucose Level 111 mg/dL (70-99) Calcium Level 8.7 mg/dL (8.5-10.1) Total Bilirubin 0.7 mg/dL (0.2-1.0) Aspartate Amino Transf (AST/SGOT) 20 U/L (15-37) Alanine Aminotransferase (ALT/SGPT) 17 U/L (14-59) Alkaline Phosphatase 52 U/L (46-116) Troponin I Quantitative < 0.017 ng/mL (0.000-0.055) Total Protein 6.6 g/dL (6.4-8.2) Albumin 2.9 g/dL (3.4-5.0) Albumin/Globulin Ratio 0.8 (1.0-1.7) Triglycerides Level 82 mg/dL (0-150) Cholesterol Level 130 mg/dL (0-200) LDL Cholesterol, Calculated 76 mg/dL (0-100) VLDL Cholesterol, Calculated 16 mg/dL (0-40) Non-HDL Cholesterol Calculated 92 mg/dL (0-129) HDL Cholesterol 38 mg/dL (40-60) Cholesterol/HDL Ratio 3.4 Amylase Level 32 U/L (25-115) Lipase 213 U/L (73-393) Laboratory Tests Test 02/14/17 17:00 02/14/17 21:00 02/15/17 04:00 02/15/17 04:30 Urine Collection Type Unknown Urine Color Dk yellow Urine Clarity Clear Urine pH 5.5 Urine Specific [place] 1.020 Urine Protein Negative mg/dL (NEG-TRACE) Urine Glucose (UA) Negative mg/dL (NEG) Urine Ketones (Stick) Trace mg/dL (NEG) Urine Blood Negative (NEG) Urine Nitrite Negative (NEG) Urine Bilirubin Negative (NEG) Urine Urobilinogen Dipstick 1.0 mg/dL (0.2 mg/dL) Urine Leukocyte Esterase Large (NEG) Urine RBC 0 /HPF (0-2) Urine WBC 20-40 /HPF (0-4) Urine Squamous Epithelial Cells Many /LPF Urine Renal Epithelial Cells Few /LPF Urine Bacteria Few /HPF (0-FEW) Urine Hyaline Casts Moderate /HPF Urine Mucus Marked /LPF Troponin I Quantitative < 0.017 ng/mL (0.000-0.055) < 0.017 ng/mL (0.000-0.055) White Blood Count 7.2 x10^3/uL (4.0-11.0) Red Blood Count 3.41 x10^6/uL (3.50-5.40) Hemoglobin 10.4 g/dL (12.0-15.5) Hematocrit 30.3 % (36.0-47.0) Mean Corpuscular Volume 89 fL (79-100) Mean Corpuscular Hemoglobin 31 pg (25-35) Mean Corpuscular Hemoglobin Concent 34 g/dL (31-37) Red Cell Distribution Width 13.0 % (11.5-14.5) Platelet Count 163 x10^3/uL (140-400) Erythrocyte Sedimentation Rate 43 (0-25) Sodium Level 141 mmol/L (136-145) Potassium Level 3.3 mmol/L (3.5-5.1) Chloride Level 103 mmol/L (98-107) Carbon Dioxide Level 27 mmol/L (21-32) Anion Gap 11 (6-14) Blood Urea Nitrogen 24 mg/dL (7-20) Creatinine 1.4 mg/dL (0.6-1.0) Estimated GFR (Cockcroft-Gault) 36.5 BUN/Creatinine Ratio 17 (6-20) Glucose Level 111 mg/dL (70-99) Calcium Level 8.7 mg/dL (8.5-10.1) Total Bilirubin 0.7 mg/dL (0.2-1.0) Aspartate Amino Transf (AST/SGOT) 20 U/L (15-37) Alanine Aminotransferase (ALT/SGPT) 17 U/L (14-59) Alkaline Phosphatase 52 U/L (46-116) Total Protein 6.6 g/dL (6.4-8.2) Albumin 2.9 g/dL (3.4-5.0) Albumin/Globulin Ratio 0.8 (1.0-1.7) Triglycerides Level 82 mg/dL (0-150) Cholesterol Level 130 mg/dL (0-200) LDL Cholesterol, Calculated 76 mg/dL (0-100) VLDL Cholesterol, Calculated 16 mg/dL (0-40) Non-HDL Cholesterol Calculated 92 mg/dL (0-129) HDL Cholesterol 38 mg/dL (40-60) Cholesterol/HDL Ratio 3.4 Amylase Level 32 U/L (25-115) Lipase 213 U/L (73-393) Assessment/Plan Assessment/Plan This patient comes in with GI issues including a pancreatitis. She had some episodes of chest discomfort but the enzymes have been negative. I do not think that she has any cardiac issues at this time. I would like to get an echocardiogram to evaluate her left ventricular function but other than that I don't think that under her present situation that we need to do any other type of workup from a heart standpoint. Thank you very much for asking me to participate in the care of this patient. DURAN CANO MD Feb 15, 2017 15:03
[2017-02-15] MEDS ORDERED: dilTIAZem IV PUSH 25 MG/5 ML VIAL IVP ONE (15:45)
--- NOTE | 2017-02-15 19:19 | EKG ---
[facility] [address] [place] [address] Test Date: 2017-02-15 Test Time: 15:18:54 Pat Name: HARMAN PATTON Department: Room: 248 1 Gender: F Primer Boxer: MIRANDA : 1940 Requested By: DURAN CANO Order Number: [id number] Reading MD: Jovan Gray Measurements Intervals [place] Rate: 132 P: [place]: QRS: -31 QRSD: 74 T: 56 QT: 320 QTc: 478 Interpretive Statements SINUS TACHYCARDIA ABNORMAL LEFT AXIS DEVIATION LOW LIMB LEAD VOLTAGE QRS(T) CONTOUR ABNORMALITY CONSIDER ANTEROSEPTAL INFARCT CONSISTENT WITH INFERIOR INFARCT PROBABLY OLD ABNORMAL ECG RI6.01 No previous ECG available for comparison Electronically Signed On 03-06-2017 17:08:06 CDT by Jovan Gray
[2017-02-15 19:35] VITALS: BP 130/59
[2017-02-15] MEDS: SIMVASTATIN 40 MG TABLET. PO SCH (20:43)
[2017-02-15] MEDS: ENOXAPARIN 30 MG/0.3 ML SYRINGE. SQ SCH (20:44)
--- NOTE | 2017-02-15 22:00 | CONS ---
DATE OF CONSULTATION: 02/15/2017 REQUESTING PHYSICIAN: Dr. Leah Coleman. PRIMARY CARE PHYSICIAN: Dr. Leah Coleman. REASON FOR CONSULTATION: Abdominal pain. HISTORY OF PRESENT ILLNESS: This is a 76-year-old female who was admitted to [facility] on 02/14/2017 for chest and abdominal pain. She reports a 1 month history of upper abdominal pain. This is accompanied by chest tightness. She admits to nausea without emesis. She states that food does not affect this pain and bowel movements do not affect the pain either. She describes constipation and with her last bowel movement today. She had not had a bowel movement for 2 days prior. She reportedly had a fever of 100.7 at home and was seen by her nurse practitioner who thought she had flu-like symptoms. In the Emergency Room, she was noted to have AFib, but is currently in sinus. She had a colonoscopy in 2011 that demonstrated polyps. Her evaluation included imaging that raised a question of pancreatitis versus duodenal diverticulitis. In terms of her laboratory studies, her liver function tests as well as her amylase and lipase were all normal. PAST MEDICAL HISTORY: 1. Hypertension. 2. Chronic obstructive pulmonary disease. 3. Dementia. 4. Gastroesophageal reflux disease. 5. Colon polyps on colonoscopy in 2011. 6. Allergic rhinitis. 7. Osteoporosis. 8. Chronic renal insufficiency. 9. Appendectomy. 10. Hysterectomy. FAMILY MEDICAL HISTORY: Negative for colorectal cancer or pancreatic cancer. SOCIAL HISTORY: She quit smoking, but has a 40-year history. She does not drink alcohol or IV drug abuse. ALLERGIES: No known drug allergies. HOME MEDICATIONS: 1. Aspirin. 2. Vitamin D3. 3. Prolia. 4. Advair. 5. Gabapentin. 6. Meloxicam. 7. Benicar. 8. Simvastatin. 9. Spiriva. 10. Tizanidine. REVIEW OF SYSTEMS: A 13-point review of systems was done. It is positive per HPI and otherwise negative. PHYSICAL EXAMINATION: VITAL SIGNS: Temperature is 98.3, blood pressure 89/51, heart rate 87. GENERAL: She is an elderly appearing female, in no apparent distress. HEENT: Oropharynx is clear. CARDIOVASCULAR: S1, S2. LUNGS: Clear. ABDOMEN: Has normoactive bowel sounds, is soft, minimally tender to palpation in epigastric region. EXTREMITIES: No edema. NEUROLOGIC: She is awake, alert and oriented. LABORATORY DATA: Sodium of 141, potassium 3.3, BUN 24, creatinine 1.4. Liver function tests are normal including bilirubin, AST and ALT as well as alkaline phosphatase. Amylase and lipase are normal at 32 and 213. CBC shows a white blood cell count of 7.2 with hemoglobin of 10.4, an MCV of 89, platelets are at 163. IMAGING STUDIES: CT of the abdomen and pelvis raises a question of inflammatory changes in pancreaticoduodenal groove suggestive of pancreatitis versus a duodenal diverticulum with diverticulitis. There is also diverticulosis of the sigmoid and descending colon without diverticulitis noted. ASSESSMENT AND PLAN: 1. Upper abdominal pain: Differential diagnosis includes peptic ulcer disease given her nonsteroidal anti-inflammatory drug use versus pancreatic disease versus possible duodenal diverticulitis versus gastritis versus body wall pain. At this time it is unclear based on her imaging. I will go ahead and order an magnetic resonance cholangiopancreatography to further evaluate her pancreas and an upper GI with a small bowel follow through to look at the duodenal diverticula. 2. Abnormal CT: Please see #1 in terms of the upper abdominal pain and further evaluation of these findings. 3. Constipation: She reports a bowel movement every 2 days. Consider MiraLax if she is constipated in the hospital. 4. Anemia: Her hemoglobin was 10.4. We will monitor this in house especially in the setting of lower platelets. If continues to drop, then I would favor checking iron studies as well as B12 and folic acid. 5. Diverticulosis: This was seen in the sigmoid and descending colon. There is no diverticulitis. Thank you for allowing me and Dr. Andrew to participate in the care of this patient. ELEN FRANKEL MD DR: LANI/dixon JOB#: [id number] / [id number] LEAH Bryant MD, MICHAEL MD
[2017-02-15 23:15] VITALS: BP 126/62
[2017-02-16 03:00] VITALS: BP 127/60
[2017-02-16 06:11] LABS: BASO % 1 % (0-3); EOS % 3 % (0-3); HEMOGLOBIN 9.9 g/dL (12.0-15.5); LYMPH # 0.9 x10^3/uL (1.0-4.8); LYMPH % 18 % (24-48); MEAN CORPUSCULAR HEMOGLOBIN 30 pg (25-35); MEAN CORPUSCULAR HGB CONC 34 g/dL (31-37); MEAN CORPUSCULAR VOLUME 88 fL (79-100); MONO % 14 % (0-9); NEUT % 64 % (31-73); PLATELET COUNT 174 x10^3/uL (140-400); RED BLOOD COUNT 3.29 x10^6/uL (3.50-5.40); RED CELL DISTRIBUTION WIDTH 12.8 % (11.5-14.5); WHITE BLOOD COUNT 4.8 x10^3/uL (4.0-11.0)
[2017-02-16 06:18] LABS: ALBUMIN 2.8 g/dL (3.4-5.0); ALBUMIN/GLOBULIN RATIO 0.7 (1.0-1.7); CALCIUM 8.7 mg/dL (8.5-10.1); CREATININE 1.2 mg/dL (0.6-1.0); GFR 43.6; TOTAL BILIRUBIN 0.5 mg/dL (0.2-1.0); TOTAL PROTEIN 6.6 g/dL (6.4-8.2)
[2017-02-16] MEDS: IPRATRPIUM/ALBUTEROL 0.5/2.5MG 3 ML NEBU. NEB SCH ×4 (07:48→19:40)
[2017-02-16] MEDS: BUDESONIDE 0.5 MG/2 ML NEBU. NEB SCH ×2 (07:48→19:40)
[2017-02-16 07:55] VITALS: BP 138/64
[2017-02-16] MEDS ORDERED: SIMETHICONE/SOD BICARB/CITRIC ACID PACKET. PO ONE (10:00)
[2017-02-16] MEDS ORDERED: BARIUM SULFATE 340 GM SUSPENSION. PO ONE (10:00)
[2017-02-16] MEDS ORDERED: BARIUM SULFATE 60% 355 ML SUSP PO ONE (10:00)
--- NOTE | 2017-02-16 11:15 | RAD ---
MRCP, 02/16/2017: History: Abdominal pain Imaging was performed in axial and coronal planes utilizing a variety of sequences including T2 weighted, fat suppressed T2 weighted and opposed phase gradient echo sequences. 2-D and 3-D MRCP sequences were also performed with 3-D MIP reconstructions produced. The gallbladder is unremarkable. The bile ducts are of normal caliber. The common duct tapers normally at the ampulla. No filling defect is seen in the common duct to suggest a common duct calculus. The pancreatic duct is of normal caliber. There is a 2.5 cm structure containing gas and fluid present along the posterior inferior margin of the pancreatic head. This corresponds to a presumed duodenal diverticulum seen on the recent CT study. No pancreatic mass is evident. The liver and spleen are unremarkable. Two simple cysts are noted in the left kidney. IMPRESSION: 1. No biliary tract or pancreatic ductal abnormality is detected. 2. Small duodenal diverticulum adjacent to the pancreatic head. 3. Small left renal cysts.
--- NOTE | 2017-02-16 12:33 | RAD ---
Double contrast upper GI with small bowel follow-through, 02/16/2017: History: Abdominal pain The study was performed utilizing high density barium and gas-forming crystals followed by regular liquid barium. 2.8 minutes of fluoroscopy time was utilized. 12 static and dynamic fluoroscopic sequences were recorded. The preliminary abdominal image shows a nonspecific gas pattern. There are moderate degenerative changes in the spine. The swallowing mechanism is intact. There is a mildly prominent cricopharyngeal impression in the cervical esophagus without obstruction to flow of the barium through that region. The esophageal peristalsis is normal. No hiatal hernia or gastroesophageal reflux was demonstrated. The stomach and duodenal bulb show no evidence of obstruction or mass. The patient's known duodenal diverticulum at the junction of the second and third portions of the duodenum identified on previous imaging did not fill with contrast on this study. This may be due to duodenal diverticulitis as suggested on the CT exam. There appears to be mild fold thickening in the second portion of the duodenum. There is normal transit of the barium through the small bowel into the colon, reaching the colon at 40 minutes. The small bowel loops are of normal caliber. The terminal ileum is unremarkable. IMPRESSION: 1. No significant upper GI abnormality is detected. 2. Nonopacification of the patient's known duodenal diverticulum compatible with the CT impression of duodenal diverticulitis. 3. Mild adjacent fold thickening in the second portion of the duodenum.
[2017-02-16] MEDS: ASPIRIN CHEWABLE 81 MG TABLET. PO SCH (12:54)
[2017-02-16] MEDS: PANTOPRAZOLE 40 MG TABLET.DR. PO SCH (12:54)
--- NOTE | 2017-02-16 13:33 | PDOC ---
Subjective: Subjective: Still with pain Objective: Vital Signs: Vital Signs Date Time Temp Pulse Resp B/P (MAP) Pulse Ox O2 Delivery O2 Flow Rate FiO2 02/16/17 12:43 94 Room Air 02/16/17 07:55 98.8 84 20 138/64 (88) 98.8 Labs: Laboratory Tests Test 02/16/17 05:00 White Blood Count 4.8 x10^3/uL (4.0-11.0) Red Blood Count 3.29 x10^6/uL (3.50-5.40) Hemoglobin 9.9 g/dL (12.0-15.5) Hematocrit 29.0 % (36.0-47.0) Mean Corpuscular Volume 88 fL (79-100) Mean Corpuscular Hemoglobin 30 pg (25-35) Mean Corpuscular Hemoglobin Concent 34 g/dL (31-37) Red Cell Distribution Width 12.8 % (11.5-14.5) Platelet Count 174 x10^3/uL (140-400) Neutrophils (%) (Auto) 64 % (31-73) Lymphocytes (%) (Auto) 18 % (24-48) Monocytes (%) (Auto) 14 % (0-9) Eosinophils (%) (Auto) 3 % (0-3) Basophils (%) (Auto) 1 % (0-3) Neutrophils # (Auto) 3.1 x10^3uL (1.8-7.7) Lymphocytes # (Auto) 0.9 x10^3/uL (1.0-4.8) Monocytes # (Auto) 0.7 x10^3/uL (0.0-1.1) Eosinophils # (Auto) 0.1 x10^3/uL (0.0-0.7) Basophils # (Auto) 0.0 x10^3/uL (0.0-0.2) Sodium Level 141 mmol/L (136-145) Potassium Level 4.0 mmol/L (3.5-5.1) Chloride Level 107 mmol/L (98-107) Carbon Dioxide Level 27 mmol/L (21-32) Anion Gap 7 (6-14) Blood Urea Nitrogen 10 mg/dL (7-20) Creatinine 1.2 mg/dL (0.6-1.0) Estimated GFR (Cockcroft-Gault) 43.6 BUN/Creatinine Ratio 8 (6-20) Glucose Level 109 mg/dL (70-99) Calcium Level 8.7 mg/dL (8.5-10.1) Total Bilirubin 0.5 mg/dL (0.2-1.0) Aspartate Amino Transf (AST/SGOT) 19 U/L (15-37) Alanine Aminotransferase (ALT/SGPT) 22 U/L (14-59) Alkaline Phosphatase 61 U/L (46-116) Total Protein 6.6 g/dL (6.4-8.2) Albumin 2.8 g/dL (3.4-5.0) Albumin/Globulin Ratio 0.7 (1.0-1.7) Physical Exam: Physical Exam: GEN: NAD HEENT: OP clear ABD: NABS, S. TTP epigastric EXT: No edema NEURO: AAO x 3 Assessment & Plan: Assessment : 1) Duodenal diverticulitis Plan: No lab evidence of pancreatitis Will start antibiotics Consider EGD once resolved and surgical input Problems: ELEN FRANKEL MD Feb 16, 2017 13:33
[2017-02-16] MEDS: CIPROFLOXACIN HCL 250 MG TABLET. PO SCH ×2 (14:55→20:47)
[2017-02-16] MEDS: metroNIDAZOLE 500 MG TABLET PO SCH ×2 (14:58→20:47)
[2017-02-16] MEDS: POTASSIUM CL 20MEQ D5-0.45NACL 1,000 ML IV SCH ×2 (15:06→23:05)
[2017-02-16 15:20] VITALS: BP 114/55
--- NOTE | 2017-02-16 17:48 | PDOC ---
GENERAL General: vss and afebrile. ongoing pain per family. down for MRCP at time of visit. GI help appreciated. continue same. Problems: VITAL SIGNS Vital Signs: Vital Signs Date Time Temp Pulse Resp B/P (MAP) Pulse Ox O2 Delivery O2 Flow Rate FiO2 02/16/17 16:29 94 Room Air 02/16/17 15:20 98.3 91 18 114/55 (74) 98.3 I & O I & O Intake and Output 02/17/17 07:00 Output Total 500 ml Balance -500 ml Output Urine Total 500 ml ALLERGIES Allergies: Allergies Coded Allergies Type Severity Reaction Last Updated Verified No Known Drug Allergies 01/03/16 No MEDS Medications: Current Medications Medications (Trade) Dose Ordered Sig/Jose Start Time Stop Time Status Last Admin Dose Admin Acetaminophen (Tylenol) 1,000 mg 1X ONCE 02/14/17 13:45 02/14/17 13:46 DC 02/14/17 13:53 1,000 MG Albuterol/ Ipratropium (Duoneb) 3 ml RTQID 02/14/17 20:00 02/16/17 16:28 3 ML Aspirin (Aurelio Aspirin) 325 mg 1X ONCE 02/14/17 13:45 02/14/17 13:46 DC 02/14/17 13:54 325 MG Aspirin (Children'S Aspirin) 81 mg DAILY 02/15/17 09:00 02/16/17 12:54 81 MG Barium Sulfate (E-Z-Hd) 340 gm 1X ONCE 02/16/17 10:00 02/16/17 10:01 DC 02/16/17 10:00 340 GM Barium Sulfate (Liquid E-Z Paque) 355 ml 1X ONCE 02/16/17 10:00 02/16/17 10:01 DC 02/16/17 10:00 355 ML Budesonide (Pulmicort) 0.5 mg RTBID 02/14/17 20:00 02/15/17 19:25 0.5 MG Ciprofloxacin (Cipro) 250 mg BID 02/16/17 14:00 02/16/17 14:55 250 MG Diltiazem HCl (Cardizem) 10 mg 1X ONCE 02/15/17 15:45 02/15/17 15:46 DC 02/15/17 15:58 10 MG Enoxaparin Sodium (Lovenox 30mg Syringe) 30 mg Q24H 02/14/17 21:00 02/15/17 20:44 30 MG Fentanyl Citrate (Fentanyl 2ml Vial) 50 mcg PRN Q2HR PRN 02/14/17 15:30 02/15/17 15:29 DC Metronidazole (Flagyl) 250 mg Q12HR 02/16/17 14:00 02/16/17 14:58 250 MG Non-Formulary Medication 1 cap DAILY 02/15/17 09:00 UNV Ondansetron HCl (Zofran) 4 mg PRN Q8HRS PRN 02/14/17 15:30 02/15/17 15:29 DC Pantoprazole Sodium (Protonix) 40 mg DAILYAC 02/15/17 07:30 02/16/17 12:54 40 MG Pneumococcal Polyvalent Vaccine (Do NOT chart on this placeholder) 1 each 1X ONCE 02/14/17 18:15 02/14/17 18:16 UNV Potassium Chloride/Dextrose/ Sod Cl 1,000 ml @ 75 mls/hr [id number] 02/14/17 17:45 02/16/17 15:06 75 MLS/HR Simethicone/ Sodium Bicarb/ Citric Ac (E-Z-Gas) 1 packet 1X ONCE 02/16/17 10:00 02/16/17 10:01 DC 02/16/17 10:00 1 PACKET Simvastatin (Zocor) 40 mg HS 02/14/17 21:00 02/15/17 20:43 40 MG Sodium Chloride 1,000 ml @ 1,000 mls/hr 1X ONCE 02/14/17 13:45 02/14/17 14:44 DC 02/14/17 13:54 1,000 MLS/HR Tizanidine HCl (Zanaflex) 4 mg PRN Q8HRS PRN 02/14/17 17:00 02/16/17 13:37 DC 02/15/17 20:43 4 MG LAB Lab: Laboratory Tests Test 02/16/17 05:00 White Blood Count 4.8 x10^3/uL (4.0-11.0) Red Blood Count 3.29 x10^6/uL (3.50-5.40) Hemoglobin 9.9 g/dL (12.0-15.5) Hematocrit 29.0 % (36.0-47.0) Mean Corpuscular Volume 88 fL (79-100) Mean Corpuscular Hemoglobin 30 pg (25-35) Mean Corpuscular Hemoglobin Concent 34 g/dL (31-37) Red Cell Distribution Width 12.8 % (11.5-14.5) Platelet Count 174 x10^3/uL (140-400) Neutrophils (%) (Auto) 64 % (31-73) Lymphocytes (%) (Auto) 18 % (24-48) Monocytes (%) (Auto) 14 % (0-9) Eosinophils (%) (Auto) 3 % (0-3) Basophils (%) (Auto) 1 % (0-3) Neutrophils # (Auto) 3.1 x10^3uL (1.8-7.7) Lymphocytes # (Auto) 0.9 x10^3/uL (1.0-4.8) Monocytes # (Auto) 0.7 x10^3/uL (0.0-1.1) Eosinophils # (Auto) 0.1 x10^3/uL (0.0-0.7) Basophils # (Auto) 0.0 x10^3/uL (0.0-0.2) Sodium Level 141 mmol/L (136-145) Potassium Level 4.0 mmol/L (3.5-5.1) Chloride Level 107 mmol/L (98-107) Carbon Dioxide Level 27 mmol/L (21-32) Anion Gap 7 (6-14) Blood Urea Nitrogen 10 mg/dL (7-20) Creatinine 1.2 mg/dL (0.6-1.0) Estimated GFR (Cockcroft-Gault) 43.6 BUN/Creatinine Ratio 8 (6-20) Glucose Level 109 mg/dL (70-99) Calcium Level 8.7 mg/dL (8.5-10.1) Total Bilirubin 0.5 mg/dL (0.2-1.0) Aspartate Amino Transf (AST/SGOT) 19 U/L (15-37) Alanine Aminotransferase (ALT/SGPT) 22 U/L (14-59) Alkaline Phosphatase 61 U/L (46-116) Total Protein 6.6 g/dL (6.4-8.2) Albumin 2.8 g/dL (3.4-5.0) Albumin/Globulin Ratio 0.7 (1.0-1.7) CANDIE GAN MD Feb 16, 2017 17:48
[2017-02-16 19:10] VITALS: BP 108/60
[2017-02-16] MEDS: SIMVASTATIN 40 MG TABLET. PO SCH (20:47)
[2017-02-16] MEDS: ENOXAPARIN 30 MG/0.3 ML SYRINGE. SQ SCH (20:48)
[2017-02-16 22:50] VITALS: BP 127/58
[2017-02-17 02:50] VITALS: BP 117/57
[2017-02-17 07:00] VITALS: BP 120/63
[2017-02-17] MEDS: IPRATRPIUM/ALBUTEROL 0.5/2.5MG 3 ML NEBU. NEB SCH ×2 (08:16→11:17)
[2017-02-17] MEDS: BUDESONIDE 0.5 MG/2 ML NEBU. NEB SCH (08:16)
[2017-02-17] MEDS: ASPIRIN CHEWABLE 81 MG TABLET. PO SCH (08:46)
[2017-02-17] MEDS: PANTOPRAZOLE 40 MG TABLET.DR. PO SCH (08:46)
[2017-02-17] MEDS: metroNIDAZOLE 500 MG TABLET PO SCH (08:46)
[2017-02-17] MEDS: CIPROFLOXACIN HCL 250 MG TABLET. PO SCH (08:46)
[2017-02-17 11:00] VITALS: BP 146/56
[2017-02-17] MEDS ORDERED: INFLUENZA VAX SCREEN BY RX. MC PRN (11:30)
[2017-02-17] MEDS ORDERED: PANT40TA5 PO (11:39)
[2017-02-17] MEDS ORDERED: METR500T PO (11:39)
[2017-02-17] MEDS ORDERED: CIPR250T30 PO (11:39)
--- NOTE | 2017-02-17 11:45 | PDOC ---
SUBJECTIVE Subjective feeling better, anxious to go home OBJECTIVE Vital Signs Vital Signs Date Time Temp Pulse Resp B/P (MAP) Pulse Ox O2 Delivery O2 Flow Rate FiO2 02/17/17 11:18 92 Room Air 02/17/17 11:00 97.9 90 18 146/56 (86) 94 Room Air 97.9 02/17/17 08:15 94 Room Air 02/17/17 08:00 Room Air 02/17/17 07:00 99.1 78 18 120/63 (82) 96 Room Air 99.1 02/17/17 02:50 98.6 82 20 117/57 (77) 92 Room Air 98.6 02/16/17 22:50 97.6 89 20 127/58 (81) 93 BiPAP/CPAP 97.6 02/16/17 20:00 Room Air 02/16/17 20:00 Room Air 02/16/17 19:41 94 Room Air 02/16/17 19:41 94 Room Air 02/16/17 19:10 98.5 90 20 108/60 (76) 94 Room Air 98.5 02/16/17 16:29 94 Room Air 02/16/17 15:20 98.3 91 18 114/55 (74) 92 Room Air 98.3 02/16/17 12:43 94 Room Air PHYSICAL EXAM Physical Exam lungs clear heart RRR abd soft and no tenderness now ext no edema ASSESSMENT/PLAN Assessment/Plan MRCP noted discussed with pt and called daughter on phone , duodenal diverticulitis continue ABx and f/U out pt for EGD and surgery consult Problems: LEAH MORELAND MD Feb 17, 2017 11:45
--- NOTE | 2017-02-17 11:51 | PDOC3 ---
Discharge Summary* Date of Admission: Feb 14, 2017 Date of Discharge: Feb 17, 2017 Final Diagnosis 1- chest pain due to duodenal diverticulitis 2- short episode of paroxysmal A Fib resolved and no recurrence 3-Gastritis started PPI hold NSAID 4-diverticulosis and hx colon polyp colono 2011 5-HTN Bp low hold medication 6- acute on chronic renal insufficiency her baseline creatinine is 1.1 improved with hydration 7- hx right internal carotid aneurysm followed by Dr. 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 Decker is a 76 old [sex] who presented with [ ] Disposition/Orders: D/C to Home CONDITION AT DISCHARGE: Improved Diet: Cardiac Scheduled Fluticasone/Salmeterol (Advair 250-50 Diskus), 1 INH IH BID, (Reported) Gabapentin (Gabapentin), 300 MG PO TID, (Reported) Meloxicam (Meloxicam), 7.5 MG PO DAILY, (Reported) Olmesartan Medoxomil (Benicar), 20 MG PO DAILY, (Reported) Simvastatin (Simvastatin), 40 MG PO HS, (Reported) Tiotropium [place] (Spiriva), 1 CAP IH DAILY, (Reported) Scheduled PRN Tizanidine Hcl (Tizanidine Hcl), 4 MG PO TID PRN for MUSCLE SPASMS, (Reported) Miscellaneous Medications Aspirin (Aspirin), 81 MG PO, (Reported) Cholecalciferol (Vitamin D3) (Vitamin D), 1,000 UNIT PO, (Reported) Denosumab (Prolia), 60 MG SQ, (Reported) FOLLOW UP APPOINTMENT: DR. Moreland 1-2 week GI for EGD as directed, surgery consult outpt Time Spent Total time spent with patient [] minutes for coordination of care, counseling, and education. LEAH MORELAND MD Feb 17, 2017 11:50
[2017-02-17] MEDS: POTASSIUM CL 20MEQ D5-0.45NACL 1,000 ML IV SCH (12:25)
--- NOTE | 2017-02-17 12:36 | PDOC ---
Subjective: Subjective: Still has some pain, has questions re: diet. Objective: Objective: To DC today. Vital Signs: Vital Signs Date Time Temp Pulse Resp B/P (MAP) Pulse Ox O2 Delivery O2 Flow Rate FiO2 02/17/17 11:18 92 Room Air 02/17/17 11:00 97.9 90 18 146/56 (86) 97.9 Imaging: MRCP IMPRESSION: 1. No biliary tract or pancreatic ductal abnormality is detected. 2. Small duodenal diverticulum adjacent to the pancreatic head. 3. Small left renal cysts. UGI SBFT IMPRESSION: 1. No significant upper GI abnormality is detected. 2. Nonopacification of the patient's known duodenal diverticulum compatible with the CT impression of duodenal diverticulitis. 3. Mild adjacent fold thickening in the second portion of the duodenum. CT A/P Limited study due to lack of IV contrast. 1. 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 There is a duodenal diverticulum in the pancreaticoduodenal groove . Alternate diagnosis include duodenal diverticulitis. Underlying pancreatic or ampullary mass not ruled out. 2. Sigmoid and descending colon diverticulosis without diverticulitis. Echocardiogram PENDING PE: GEN: NAD LUNGS: CTAB HEART: RRR ABD: upper abd discomfort, mostly right-sided NEURO/PSYCH: A & O 3 A/P: Upper abd pain Duodenal diverticulitis -on PO atbx (and also PPI) -imaging above Normocytic anemia CRC screen, h/o colon polyps -colonoscopy 2011 -- She would like to d/w Dr. Andrew dietary recs and need for outpt EGD prior to discharge. AMELIA BACON Feb 17, 2017 12:36
[2017-02-17 14:37] VITALS: BP 100/62
--- NOTE | 2017-02-17 17:29 | CARD ---
APPROVED REPORT EXAM: Two-dimensional and M-mode echocardiogram with Doppler and color Doppler. Other Information Quality : Good INDICATION LV Function:Systolic Chest Pain 2D DIMENSIONS RVDd2.1 (2.9-3.5cm)Left Atrium(2D)2.1 (1.6-4.0cm) IVSd1.1 (0.7-1.1cm)Aortic Root(2D)3.2 (2.0-3.7cm) LVDd3.1 (3.9-5.9cm)LVOT Diameter2.0 (1.8-2.4cm) PWd1.0 (0.7-1.1cm)LVDs2.4 (2.5-4.0cm) FS (%) 30.0 %SV17.8 ml LVEF(%)60.0 (>50%) Aortic Valve AoV Peak John.131.4cm/sAoV VTI22.6cm AO Peak GR.6.9mmHgLVOT Peak John.126.0cm/s AO Mean GR.4mmHgAVA (VMAX)2.91cm2 CAMILA (VTI)3.00cm2 Mitral Valve MV E Pomuxlrz98.2cm/sMV DECEL RIET993rb MV A Hwldequj987.4cm/sE/A Ratio0.7 Tricuspid Valve TR P. Rgxramnz165er/sRAP LXHJZXII8adHy TR Peak Gr.90vdBhRPAB52wyQi Pulmonary Vein S1 Snnuwrwk00.1cm/sD2 Klnbddqq90.9cm/s LEFT VENTRICLE The left ventricle is normal size. There is normal left ventricular wall thickness. The left ventricu lar systolic function is normal and the ejection fraction is within normal range. The Ejection Fracti on is 60%. There is normal LV segmental wall motion. Transmitral Doppler flow pattern is Grade I-abno rmal relaxation pattern. RIGHT VENTRICLE The right ventricle is normal size. The right ventricular systolic function is normal. ATRIA The left atrium size is normal. The right atrium size is normal. The interatrial septum is intact wit h no evidence for an atrial septal defect or patent foramen ovale as noted on 2-D or Doppler imaging. AORTIC VALVE The aortic valve is calcified but opens well. Doppler and Color Flow revealed no significant aortic r egurgitation. There is no significant aortic valvular stenosis. MITRAL VALVE The mitral valve is normal in structure There is no evidence of mitral valve prolapse. There is no mi tral valve stenosis. Doppler and Color-flow revealed trace mitral regurgitation. TRICUSPID VALVE The tricuspid valve is normal in structure and function. Doppler and Color Flow revealed no tricuspid valve regurgitation noted. There is no tricuspid valve stenosis. PULMONIC VALVE The pulmonary valve is normal in structure and function. Doppler and Color Flow revealed no pulmonic valvular regurgitation. There is no pulmonic valvular stenosis. GREAT VESSELS The aortic root is normal in size. The ascending aorta is normal in size. The IVC is normal in size a nd collapses >50% with inspiration. PERICARDIAL EFFUSION There is a trace of pericardial effusion. Critical Notification Critical Value: No <Conclusion> The left ventricular systolic function is normal and the ejection fraction is within normal range. The Ejection Fraction is 60%. Transmitral Doppler flow pattern is Grade I-abnormal relaxation pattern. The left atrium size is normal. The right atrium size is normal. The aortic valve is calcified but opens well. Doppler and Color-flow revealed trace mitral regurgitation. The tricuspid valve is normal in structure and function. The pulmonary valve is normal in structure and function. There is a trace of pericardial effusion.
== END 2017-02-17 15:50 | disposition home or self-care (01) | DRG 392 ==
LOC: ER 12:47 → 2 SOUTH 14:55
PROVIDERS: ADMIT Internal Medicine; ATTEND Internal Medicine
PROC: 5A09357 Assistance with Respiratory Ventilation, Less than 24 Consecutive Hours, Continuous Positive Airway Pressure (ICD-10-PCS; principal; 2017-02-15)
DX: K57.12 Diverticulitis of small intestine without perforation or abscess without bleeding (principal); N39.0 Urinary tract infection, site not specified; F03.90 Unspecified dementia, unspecified severity, without behavioral disturbance, psychotic disturbance, mood disturbance, and anxiety; I48.0 Paroxysmal atrial fibrillation; J44.9 Chronic obstructive pulmonary disease, unspecified; D64.9 Anemia, unspecified; E78.5 Hyperlipidemia, unspecified; I12.9 Hypertensive chronic kidney disease with stage 1 through stage 4 chronic kidney disease, or unspecified chronic kidney disease; K21.9 Gastro-esophageal reflux disease without esophagitis; K29.70 Gastritis, unspecified, without bleeding; K29.80 Duodenitis without bleeding; K57.30 Diverticulosis of large intestine without perforation or abscess without bleeding; K59.00 Constipation, unspecified; M19.90 Unspecified osteoarthritis, unspecified site; M81.0 Age-related osteoporosis without current pathological fracture; N18.9 Chronic kidney disease, unspecified; N28.1 Cyst of kidney, acquired; Z82.49 Family history of ischemic heart disease and other diseases of the circulatory system; Z87.891 Personal history of nicotine dependence; Z86.010 Personal history of colon polyps; Z90.49 Acquired absence of other specified parts of digestive tract; Z90.710 Acquired absence of both cervix and uterus; E87.6 Hypokalemia
CPT/HCPCS: 36415; 71010; 71250; 74176; 74181; 74249; 80053; 80061; 81001; 82150; 83690; 83735; 83880; 84484; 85025; 85027; 85610; 85651; 86301; 87086; 87804; 93005; 93306; 94250; 94640; 94760; 96361; 96374; J1650; J3490; J7030; J7620; J7626; 99285-25

== ENCOUNTER → 2017-02-18 | Outpatient (CLI) | payer MEDICARE, OTHER ==
[2017-02-17 14:37] VITALS: BP 100/62
[~2017-02-18] MED LIST changes: +CIPR250T30 PO; +CONTRAST GIVEN MC PRN; +METR500T PO; +PANT40TA5 PO
[2017-02-18] MEDS: IOHEXOL 300 MG/ML 100ML VIAL. IV ONE (08:54)
--- NOTE | 2017-02-18 10:22 | KCIC ---
CTA head History: Nonruptured cerebral aneurysm Technique: Noncontrast CT imaging was performed of the head. After bolus of intravenous contrast, volumetric CT data acquisition was acquired of the head. Multiplanar reconstruction images to include MIP and 3-D reconstruction images are submitted. Exposure: One or more of the following individualized dose reduction techniques were utilized for this examination: 1. Automated exposure control 2. Adjustment of the mA and/or kV according to patient size 3. Use of iterative reconstruction technique. Contrast: 95 cc Omnipaque 300 Comparison: MRA head exam January 03, 2016 Any determination of stenosis is based on NASCET criteria. Findings: No acute intracranial hemorrhage is identified. Ventricular size is stable. There is no intra-axial mass effect or midline shift. Jean-white differentiation the major vascular territories is preserved. There is again small saccular aneurysm projecting medially from the anterior cavernous right internal carotid artery not convincingly changed, better seen on previous MRA, up to 0.2 cm in size.Both vertebral arteries constitute normal caliber basilar artery. There is visualization of the bilateral PICAs and AICAs. There is visualization of bilateral superior cerebellar arteries. There are small posterior communicating arteries bilaterally. There is visualization of the petrous, cavernous, and supraclinoid internal carotid arteries bilaterally. There is patent anterior communicating artery There is normal contrast-enhancement of segments of the superior sagittal sinus, as well as bilateral transverse and sigmoid sinuses. There is mild plaque of the carotid siphons bilaterally. Impression: 1. There are stable small 0.2 cm aneurysm projecting medially from the anterior cavernous right internal carotid artery. Electronically signed by: Jeb Up MD (02/18/2017 10:19 AM) [id number]
== END | disposition home or self-care (01) ==
LOC: KCIC CT 08:11
PROVIDERS: ATTEND Psychiatry & Neurology Neurology with Special Qualifications in Child Neurology
DX: I67.1 Cerebral aneurysm, nonruptured (principal); I10 Essential (primary) hypertension; Z87.891 Personal history of nicotine dependence
CPT/HCPCS: 70496; Q9967

== ENCOUNTER → 2019-03-12 | Outpatient (CLI) | payer MEDICARE, OTHER ==
[~2019-03-12] MED LIST changes: -CONTRAST GIVEN MC PRN; -GABA-586 PO; +GABA300C18 PO; +OLME20TA17 PO; -OLME20TA19 PO; -PANT40TA5 PO; +PANT40TA77 PO; +SIMV40TA18 PO; -SIMV40TA3 PO
--- NOTE | 2019-03-12 15:15 | KCIC ---
MRI Brain without contrast History: Dementia, unsteady gait, cerebral aneurysm Technique: Multiplanar, multisequential noncontrast MR imaging was performed of the brain. Comparison: None Findings: There is no evidence of recent infarct or cytotoxic edema. There is again mild generalized supratentorial atrophy. There is again mild lateral ventriculomegaly although slightly greater in interval. There is also increased mild third ventriculomegaly. Fourth ventricle is not dilated.There is no significant midline shift, intraaxial mass effect, or focal abnormal extra-axial fluid collection. There is again scattered minimal T2 and FLAIR hyperintense abnormality of the supratentorial parenchyma bilaterally. There is no new significant hemosiderin deposition of the brain parenchyma. There is no significant hemosiderin deposition of the brain parenchyma. There is preservation of the major intracranial flow-voids at the skull base. The mastoid air cells are aerated. The cerebellar tonsils are normal in location. There is no significant abnormality of the pineal gland or pituitary gland. Paranasal sinuses are overall aerated. There is preserved marrow signal of the clivus. There has been lens surgery bilaterally. There is C3-4 degenerative disc disease Impression: 1. There is mild generalized supratentorial atrophy. Degree of mild third and lateral ventriculomegaly is somewhat greater, could be due to progression of mild more central atrophy, considered more likely than hydrocephalus as ventricular size fairly proportionate to the sulcal spaces. There is again mild scattered T2 and FLAIR hyperintense signal abnormality of the supratentorial parenchyma bilaterally, nonspecific findings probably due to chronic microvascular ischemic disease in a patient this age. Electronically signed by: Jeb Up MD (03/12/2019 3:12 PM) [id number]
== END | disposition home or self-care (01) ==
LOC: KCIC MRI 12:58
PROVIDERS: ATTEND Psychiatry & Neurology Neurology with Special Qualifications in Child Neurology
DX: G31.89 Other specified degenerative diseases of nervous system (principal); M50.31 Other cervical disc degeneration, high cervical region; F02.80 Dementia in other diseases classified elsewhere, unspecified severity, without behavioral disturbance, psychotic disturbance, mood disturbance, and anxiety; G31.09 Other frontotemporal neurocognitive disorder; I67.1 Cerebral aneurysm, nonruptured; R26.9 Unspecified abnormalities of gait and mobility
CPT/HCPCS: 70551

== ENCOUNTER 2019-03-16 02:02 | Emergency (ER) | payer MEDICARE, OTHER ==
[~2019-03-16] VITALS: Ht 162.6 cm; Wt 65.8 kg
[2019-03-16] MEDS ORDERED: fentaNYL PF VIAL 100 MCG/2 ML VIAL IM ONE (02:30)
--- NOTE | 2019-03-16 02:42 | RAD ---
CT brain without contrast HISTORY: Headache CT scan of brain was done without contrast. Comparison is made with a recent MRI study. Sinuses are clear. Mastoids are normally aerated. A skull fracture is not identified. There is mild diffuse atrophy. Ventricles are dilated but unchanged from the recent study. There is no intracranial hemorrhage or subdural hematoma. There is no mass or shift of the midline. An acute CVA is not identified. IMPRESSION: 1. Atrophy. 2. Ventricular dilatation. 3. No change from the recent study. 4. No intracranial hemorrhage. PQRS Compliance Statement: One or more of the following individualized dose reduction techniques were utilized for this examination: 1. Automated exposure control 2. Adjustment of the mA and/or kV according to patient size 3. Use of iterative reconstruction technique Electronically signed by: Herbert Puri MD (03/16/2019 2:39 AM) [email or web address]
--- NOTE | 2019-03-16 02:51 | PHYS DOC ---
Past Medical History Past Medical History: COPD, Dementia, Hypertension Past Surgical History: Appendectomy, Hysterectomy Alcohol Use: None Drug Use: None Adult General Chief Complaint Chief Complaint: HEADACHE HPI HPI Patient is a 78 year old female with history of dementia who presents with complaining of headache. Patient complaining of right-sided headache since 2100 last night as a constant pressure pain without focal neuro deficit, nausea and vomiting, photophobia, head injury or history of the same headache. Patient lives with her son who stated she has had chronic speech problem without new change tonight. Review of Systems Review of Systems Constitutional: Denies fever or chills [] Eyes: Denies change in visual acuity, redness, or eye pain [] HENT: Denies nasal congestion or sore throat [] Respiratory: Denies cough or shortness of breath [] Cardiovascular: No additional information not addressed in HPI [] GI: Denies abdominal pain, nausea, vomiting, bloody stools or diarrhea [] : Denies dysuria or hematuria [] Musculoskeletal: Denies back pain or joint pain [] Integument: Denies rash or skin lesions [] Neurologic: Denies focal weakness or sensory changes, reports headache. [] Endocrine: Denies polyuria or polydipsia [] All other systems were reviewed and found to be within normal limits, except as documented in this note. Current Medications Current Medications Current Medications Medications (Trade) Dose Ordered Sig/Jose Start Time Stop Time Status Last Admin Dose Admin Fentanyl Citrate (Fentanyl 2ml Vial) 50 mcg 1X ONCE 03/16/19 02:30 03/16/19 02:31 DC 03/16/19 03:28 50 MCG Allergies Allergies Allergies Coded Allergies Type Severity Reaction Last Updated Verified No Known Drug Allergies 01/03/16 No Physical Exam Physical Exam Constitutional: Well nourished, no acute distress, non-toxic appearance. [] HENT: Normocephalic, atraumatic, bilateral external ears normal, oropharynx moist, no oral exudates, nose normal. [] Eyes: PERRLA, EOMI, conjunctiva normal, no discharge. [] Neck: Normal range of motion, no tenderness, supple, no stridor. [] Cardiovascular:Heart rate regular rhythm, no murmur [] Lungs & Thorax: Bilateral breath sounds clear to auscultation [] Abdomen: Bowel sounds normal, soft, no tenderness, no masses, no pulsatile masses. [] Skin: Warm, dry, no erythema, no rash. [] Back: No tenderness, no CVA tenderness. [] Extremities: No tenderness, no cyanosis, no clubbing, ROM intact, no edema. [] Neurologic: Alert and oriented X 2, normal motor function, normal sensory function, no focal deficits noted. [] Psychologic: Affect normal, mood normal. [] Current Patient Data Vital Signs Vital Signs Date Time Temp Pulse Resp B/P (MAP) Pulse Ox O2 Delivery O2 Flow Rate FiO2 03/16/19 02:15 97.6 82 20 162/108 (126) 95 Room Air 97.6 EKG EKG [] Radiology/Procedures Radiology/Procedures [][facility] [address] [place] [address] IMAGING REPORT Signed PATIENT: HARMAN PATTON ACCOUNT: [id number] : 1940 LOCATION: ER AGE: 78 SEX: F EXAM STATUS: REG ER ORD. PHYSICIAN: ARLYN DE LEON MD REASON: headache PROCEDURE: CT HEAD WO CONTRAST CT brain without contrast HISTORY: Headache CT scan of brain was done without contrast. Comparison is made with a recent MRI study. Sinuses are clear. Mastoids are normally aerated. A skull fracture is not identified. There is mild diffuse atrophy. Ventricles are dilated but unchanged from the recent study. There is no intracranial hemorrhage or subdural hematoma. There is no mass or shift of the midline. An acute CVA is not identified. IMPRESSION: 1. Atrophy. 2. Ventricular dilatation. 3. No change from the recent study. 4. No intracranial hemorrhage. PQRS Compliance Statement: One or more of the following individualized dose reduction techniques were utilized for this examination: 1. Automated exposure control 2. Adjustment of the mA and/or kV according to patient size 3. Use of iterative reconstruction technique Electronically signed by: Herbert Fu MD (03/16/2019 2:39 AM) [facility] DICTATED and SIGNED BY: HERBERT FU MD DATE: 03/16/19 0239 Course & Med Decision Making Course & Med Decision Making Pertinent Imaging studies reviewed. (See chart for details) Evaluation of patient in ER showed 78-year-old female patient with history of dementia complaining of right side of her for several hours without taking any pain medication. Patient did not want to have pain medication in ER but later on agreed to have pain medication. CT of head didn't show acute finding. Patient was advised to follow-up with her neurologist and continue home medication. Dragon Disclaimer Dragon Disclaimer This electronic medical record was generated, in whole or in part, using a voice recognition dictation system. Departure Departure Impression: Primary Impression: Headache Disposition: HOME, SELF-CARE (at 0330) Condition: IMPROVED Referrals: NO PCP (PCP) Patient Instructions: General Headache Without Cause Additional Instructions: Drink plenty of liquids Follow-up with your primary care physician in 3-5 days Return to ER if not getting better Take [id number] Tylenol 1000 mg every 6-8 hours as needed for pain Problem Qualifiers Primary Impression: Headache Headache type: unspecified Headache chronicity pattern: unspecified pattern Intractability: not intractable Qualified Codes: R51 - Headache ARLYN DE LEON MD Mar 16, 2019 02:51
[2019-03-16 03:35] VITALS: BP 146/70
== END 2019-03-16 03:50 | disposition home or self-care (01) ==
LOC: ER 02:02
DX: R51 Headache (principal); J44.9 Chronic obstructive pulmonary disease, unspecified; F03.90 Unspecified dementia, unspecified severity, without behavioral disturbance, psychotic disturbance, mood disturbance, and anxiety; I10 Essential (primary) hypertension
CPT/HCPCS: 70450; 96372; 99284; J3010